=== PATIENT | male | born 1945 | race Hispanic/Latino ===

== ENCOUNTER → 2020-08-19 | Outpatient (CLI) | payer OTHER ==
[~2020-08-19] MED LIST: ATOR40TA71 PO; METO100T14 PO; TAMS0.4C32 PO
== END | disposition home or self-care (01) ==
LOC: SHCH 10:25
PROVIDERS: ATTEND Internal Medicine Cardiovascular Disease
DX: R00.2 Palpitations (principal); I48.20 Chronic atrial fibrillation, unspecified
CPT/HCPCS: 93306; 93356